=== PATIENT | male | born 2000 | race Caucasian/White ===

== ENCOUNTER 2022-01-22 11:01 | Emergency (ER) | payer OTHER, SELFPAY ==
[2022-01-22 11:07] VITALS: BP 121/70; PULSE 80; RESP 20; TEMP 36.1; O2SAT 99; BMI 21.6
[2022-01-22 11:33] LABS: Hematocrit 44.9 % (42.0-52.0); Hemoglobin 14.7 g/dl (14.0-18.0); Mean Corpuscular HGB Conc 32.7 g/dl (31.0-36.0); Mean Corpuscular Hemoglobin 24.1 pg (27.0-33.0); Mean Corpuscular Volume 73.6 fL (80.0-98.0); Mean Platelet Volume 9.4 fL (9.4-12.4); Platelet Count 281 X10*3/uL (160-400); Red Cell Distribution Width 13.5 % (11.0-16.0)
[2022-01-22 11:49] LABS: Anion Gap 21 (12-20); Blood Urea Nitrogen 11 mg/dL (9-16); Calcium 10.8 mg/dL (8.4-10.2); Carbon Dioxide 20 mmol/L (22-29); Chloride 105 mmol/L (96-108); Creatinine Clr Calc Pharmacy 88.7; Estimated Glomerular Filt Rate > 60; Glucose Random 121 mg/dL (60-115); Lipase 48 U/L (8-78); Potassium 3.4 mmol/L (3.3-5.1); Sodium 143 mmol/L (135-145)
== END 2022-01-22 14:21 | disposition left against medical advice (07) ==
PROVIDERS: Emergency Provider Emergency Medicine
DX: R11.10 Vomiting, unspecified (principal); R10.9 Unspecified abdominal pain
CPT/HCPCS: 36415; 80048; 83690; 85027; 99281; 99283

== ENCOUNTER 2023-06-14 19:59 | Emergency (ER) | payer OTHER, SELFPAY ==
--- NOTE | ~2023-06-14 | XR_ITS ---
EXAMINATION: XR FINGER, RIGHT CLINICAL INFORMATION: Digit deformity. COMPARISON: None available. TECHNIQUE: Three views of the right small finger. FINDINGS: Fixed flexion of the fifth distal interphalangeal joint. Equivocal nondisplaced fracture at the tuft of the fifth distal phalanx. No additional acute osseous findings. Mild soft tissue swelling centered around the fifth digit and hypothenar surface of the hand. No unexpected radiopaque foreign bodies. XR/XR finger RT min 2V IMPRESSION: 1. Fixed flexion of the fifth distal interphalangeal joint suspicious for ligamentous injury. 2. Equivocal nondisplaced fracture at the tuft of the fifth distal phalanx. Correlate for point tenderness.
[2023-06-14 20:01] VITALS: BP 133/85; PULSE 103; RESP 18; TEMP 37.4; O2SAT 96; BMI 21.5
--- NOTE | 2023-06-14 20:01 | ED.GENADULT ---
HPI - General Adult General Chief complaint: Extremity Injury, Upper Stated complaint: R pinky finger injury, playing basketball Time Seen by Provider: 06/15/23 00:03 Source: patient, RN notes reviewed and old records reviewed Mode of arrival: ambulatory Limitations: no limitations History of Present Illness HPI narrative: A 22-year-old male presents for evaluation of an injury to his left 5th finger. Patient was playing basketball and jammed the finger against the ball and another player at the same time He reports that his left 5th finger bent backwards. He complains of pain to the tip of the left 5th finger No other complaints or concerns at this time Related Data Allergies Allergy/AdvReac Type Severity Reaction Status Date / Time No Known Allergies Allergy Unverified 04/01/20 16:50 Review of Systems Constitutional: Constitutional: Denies chills and Denies fever(s) Musculoskeletal: Musculoskeletal: Reports arthralgias and Reports joint swelling Integumentary/Breasts: Skin/Breast: Denies wounds PMFSH Social History Social History Advance Directives: No Advance Directives Information Provided: No Physical Exam ED Vital Signs: Vital Signs - 24 hr 06/14/23 20:01 Temperature 99.3 F Pulse Rate 103 H Respiratory Rate 18 Blood Pressure 133/85 Pulse Oximetry 96 Oxygen Delivery Method Room Air BMI result Body Mass Index 21.5 Const General: healthy appearing, comfortable, no acute distress, alert and awake Nutritional Appearance: well nourished Orientation/consciousness: patient oriented x3 HENMT Head: Yes normocephalic and Yes atraumatic Eyes Eyelids: Yes eyelids normal Conjunctivae: conjunctivae normal Sclerae: sclerae normal Corneas: corneas normal Pupils: Equal, round and reactive pupils present EOM: EOMs intact bilaterally Neck Neck: Yes full ROM Resp Effort & Inspection: normal respiratory effort, able to speak in complete sentences and not labored Cardio Rate: regular rate Rhythm: regular rhythm GI Inspection: No distended Palpation (GI): Soft to palpation, not firm, nontender, no guarding and not rigid Skin General skin exam: no rashes or lesions noted and elasticity normal Neuro General: patient oriented x3 Cranial nerves: Yes Equal, round and reactive pupils present and Yes Bilaterally intact EOM present Cognition (Neuro): normal cognition Extrem Other: Patient has minimal edema to the distal left 5th finger. The area is tender to palpation. He has difficulty with extension of the left the DIP joint. She no open wounds Course Course Course Narrative: This is a rapid medical exam: Additional HPI, ROS, PE not included below will be deferred to primary provider. Patient is a 22-year-old male presenting to the ED with right 5th finger pain and deformity. States he was playing basketball and jammed hand into another player. + mallet deformity to R fifth finger, capillary refill <2 seconds. Neurovascularly intact. Patient rates pain at 5/10. Plan: x-ray Medical Decision Making Medical Decision Making MDM Narrative: X-ray shows a mild fracture of the tuft to the left 5th distal phalanx. He likely has ligamentous injury and has difficulty with extension. Patient was splinted with a kings-tape method. No open wounds. Discussed results with patient he would referred to Orthopedics for follow-up Differential Diagnosis Differential Diagnoses: The differential diagnosis associated with the presentation includes Finger fracture Dislocation Finger sprain Contusion Independent Interpretation I performed an independent interpretation of an: Plain X-Ray (No dislocation) Radiology Impression Discussion of test interpretation with radiology: I have reviewed the radiologist's reading. (Fixed flexion suggestive ligamentous injury. Equivocal nondisplaced tuft fracture of the left 5th finger) Discharge Plan Discharge Clinical Impression: Finger fracture, left Patient Disposition: Home, Self-Care Instructions: Finger Fracture (ED) Additional Instructions: Your x-ray showed a fracture to the tip of the left 5th finger/pinky finger You may keep it kings tape to help stabilize the finger and allow for healing You also likely have a ligamentous injury to the left finger based on the x-ray Follow-up with Dr. Noemi Meredith, hand surgery Use ibuprofen/Tylenol for pain Referrals: Noemi Meredith MD [Physician] - (Left fifth finger fracture. Likely ligament tear) Interventions: ED Discharge Assessment Last Done: 06/15/23 00:50 Discharge Date/Time: 06/15/23 00:50
--- NOTE | 2023-06-15 00:21 | PC.NURSE ---
Patient's family member approached this RN requesting to see a doctor/provider. Awaiting ED provider to speak with and evaluate patient. Patient & visitor remain in [facility] room 2. Pending ED provider evaluation. weighing station operator (Tricia Rose) aware.
== END 2023-06-15 00:50 | disposition home or self-care (01) ==
PROVIDERS: Emergency Provider Emergency Medicine
DX: S62.607A Fracture of unspecified phalanx of left little finger, initial encounter for closed fracture (principal); Y93.67 Activity, basketball; Y92.310 Basketball court as the place of occurrence of the external cause; Y99.9 Unspecified external cause status
CPT/HCPCS: 73140; 99282; 99283

== ENCOUNTER 2023-06-20 11:13 | Outpatient (REF) | payer OTHER, SELFPAY ==
--- NOTE | ~2023-06-20 | XR_ITS ---
EXAMINATION: XR HAND, LEFT CLINICAL INFORMATION: Pain in left hand, splint off. COMPARISON: None available. TECHNIQUE: PA, lateral, and oblique views of the left hand. FINDINGS: Moderate degenerative changes in the first carpometacarpal joint with joint space narrowing and hypertrophic change. Sclerotic lesion overlying the capitate may represent a bone island. Flexion deformity at the DIP joint of the fifth digit. XR/XR hand LT min 3V IMPRESSION: Moderate degenerative changes in the first carpometacarpal joint with joint space narrowing and hypertrophic change. Sclerotic lesion overlying the capitate may represent a bone island. Flexion deformity at the DIP joint of the fifth digit. No displaced fracture. Recommend follow-up imaging in 10-14 days if fracture is suspected.
== END 2023-06-20 11:14 | disposition home or self-care (01) ==
LOC: HO.HOSX 11:13
PROVIDERS: Visit Provider Physician Assistant
DX: M79.642 Pain in left hand (principal); M20.022 Boutonniere deformity of left finger(s)
CPT/HCPCS: 73130; 99202

== ENCOUNTER 2023-06-20 14:28 | Outpatient (AMB) | payer OTHER, SELFPAY ==
--- NOTE | 2023-06-20 14:43 | MHC.OFFVIS ---
Intake Vital Signs 06/20/23 14:45 Height 5 ft 4 in Weight 125 lb BMI 21.5 Intake Visit Reasons: fc- LT 5th Finger fracture Intake Note: Juan Alberto 22 year old right dominant male presents today for an evaluation of left 5th digit, DOI 06/14/23. Patient reports that he jammed his finger against the ball and another player causing his finger to bend backwards. He presented to [facility] ED same day where xrays were taken and kings tape applied. Currently he states discomfort at his DIP, he felt comfort with kings tape. Allergies No Known Allergies Allergy (Unverified 06/20/23 14:47) HPI fc- LT 5th Finger fracture HPI Details 22-year-old right hand dominant male who presents to the office today for left 5th finger injury s/p jamming his finger against the ball and another player causing his finger to bend backwards, 06/14/23. He was seen at ED the same day where x-rays were performed and kings tape was applied. He currently states he has discomfort at his DIP joint of his finger. He finds relief with kings taping of the finger. [facility] Social History (Updated 06/20/23 @ 14:45 by SALVADOR Salazar) Patient Tobacco Use Status: Never used Tobacco Current occupational status: unemployed Current occupation: right hand dominant Review of Systems Const All systems reviewed & are unremarkable except as noted in HPI and below Physical Exam Vital Signs: BMI result Body Mass Index 21.5 Extrem Other: Right hand: Boutonniere deformity ( hyperextension of the PIP and flexion of the DIP) He is NVI. Results Reviewed Results Reviewed: Xrays were obtained in the office today and personally reviewed by me of the left small finger show boutonniere deformity Assessment & Plan Assessment & Plan (1) Boutonniere deformity of finger of right hand: Code(s): M20.021 - Boutonniere deformity of right finger(s) Plan I did explain the extent of his injury. At this point I would like for him to see occupational therapy to obtain a double ring splint to help with the immobilization of the digit. He will wear this for the next 6 weeks and avoid any type of impact or contact activities. I would like to see him back in 6 weeks for reevaluation, sooner if needed. Orders: Orders XR hand LT min 3V 06/20/23 M79.642 - Pain in left hand Patient Instructions: Scribed for Paco Heard PA-C, by Sravan Quintaan, medical records tech, on 06/20/2023 at 2:45 PM EST. IPaco PA-C, have personally reviewed and agree with the information entered by the scribe. Coding Level of Care Code New Pt Level 3 (96507) Diagnoses Boutonniere deformity of finger of right hand M20.021
[2023-06-20 14:45] VITALS: BMI 21.5
== END 2023-06-20 15:27 | disposition home or self-care (01) ==
PROVIDERS: Visit Provider Physician Assistant
DX: M20.021 Boutonniere deformity of right finger(s) (principal)
CPT/HCPCS: 99203

== ENCOUNTER 2023-08-01 13:40 | Outpatient (AMB) | payer OTHER, SELFPAY ==
[2023-08-01 13:47] VITALS: BMI 21.5
--- NOTE | 2023-08-01 13:47 | A.OFFVIS_ITS ---
Intake Vital Signs 08/01/23 13:47 Height 5 ft 4 in Weight 125 lb BMI 21.5 Intake Visit Reasons: OV- LT 5th Finger fracture Intake Note: Juan Alberto 23 year old male presents today for a follow up of left hand 5th digit fracture, DOI 06/14/23. Patient reports he is doing well, states his discomfort has subsided. He has no concerns today. Allergies No Known Allergies Allergy (Unverified 08/01/23 13:49) HPI OV- LT 5th Finger fracture HPI Details 23-year-old male who returns to the [facility] today for a follow-up of right 5th finger fracture, 06/14/23. He states his discomfort is not subsided and he is doing well overall. He is wearing his sling at all times. He has no other concerns today. [facility] Social History Patient Tobacco Use Status: Never used Tobacco Current occupational status: unemployed Current occupation: right hand dominant Review of Systems Const All systems reviewed & are unremarkable except as noted in HPI and below Physical Exam Vital Signs: BMI result Body Mass Index 21.5 Extrem Other: Right small finger: Normal to inspection. He can flex 90 degrees at MCP and PIP. He can hold the DIP in full extension and flex to 45 degrees. Assessment & Plan Assessment & Plan (1) Boutonniere deformity of finger of right hand: Code(s): M20.021 - Boutonniere deformity of right finger(s) Plan I did put in an order for occupational therapy to work on ROM. He can discontinue the use of splint and work on motion. If symptoms persist or worsens, patient will contact the office, otherwise he will see us back in 2 weeks for a follow-up, sooner if needed. Orders: Orders OT Evaluation and Treatment Today M20.021 - Boutonniere deformity of right finger(s) Patient Instructions: Scribed for Paco Heard PA-C, by Sravan Quintana medical program specialist, on 08/01/2023 at 1:30 PM Paco JUARES PA-C, have personally reviewed and agree with the information entered by the scribe. Coding Level of Care Code Est Pt Level 3 (15145) Diagnoses Boutonniere deformity of finger of right hand M20.021
== END 2023-08-01 13:55 | disposition home or self-care (01) ==
PROVIDERS: Visit Provider Physician Assistant
DX: M20.021 Boutonniere deformity of right finger(s) (principal)
CPT/HCPCS: 99213

== ENCOUNTER → 2023-08-01 13:40 | Outpatient (BNVA) | payer OTHER, SELFPAY | PROVIDERS: Visit Provider Physician Assistant | DX: M20.021 Boutonniere deformity of right finger(s) (principal) | CPT/HCPCS: 99212 ==

== ENCOUNTER 2023-08-16 12:57 | Outpatient (AMB) | payer OTHER, SELFPAY ==
--- NOTE | 2023-08-16 13:02 | MHC.OFFVIS ---
Intake Vital Signs 08/16/23 13:05 Height 5 ft 4 in Weight 125 lb BMI 21.5 Intake Visit Reasons: ov-right small finger ROM check Intake Note: Juan Alberto 23 year old male presents today for a follow up of left hand 5th digit fracture, DOI 06/14/23. States he will be starting O.T this upcoming week. He has been working at home on his ROM with some improvement. There are times while sleeping he has pain due to finger getting caught in his sheets. Allergies No Known Allergies Allergy (Unverified 08/16/23 13:05) HPI ov-right small finger ROM check HPI Details 23-year-old male who returns to the office today for a follow-up of right small finger fracture, 06/14/23. He states he has improvement in his pain however he does c/o occasional pain in his finger while sleeping due to the finger getting caught in the sheets. He is working on home exercises with benefits. He is starting with occupational therapy this upcoming week. He has no other concerns today. [facility] Social History Patient Tobacco Use Status: Never used Tobacco Current occupational status: unemployed Current occupation: right hand dominant Review of Systems Const All systems reviewed & are unremarkable except as noted in HPI and below Physical Exam Vital Signs: BMI result Body Mass Index 21.5 Extrem Other: Right small finger: Normal to inspection. He can flex 90 degrees at MCP and PIP. He can hold the DIP in full extension and flex to 45 degrees. Assessment & Plan Assessment & Plan (1) Boutonniere deformity of finger of right hand: Code(s): M20.021 - Boutonniere deformity of right finger(s) Plan He will work with occupational therapy which begins tomorrow. 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 If symptoms persist or worsens, patient will contact the office, otherwise follow-up as needed. Patient Instructions: Scribed for Paco Heard PA-C, by Sravan Quintana pediatrician/medical doctor, on 08/16/2023 at 1:15 PM EST. I, Paco Heard PA-C, have personally reviewed and agree with the information entered by the scribe. Coding Level of Care Code Est Pt Level 3 (79423) Diagnoses Boutonniere deformity of finger of right hand M20.021
[2023-08-16 13:05] VITALS: BMI 21.5
== END 2023-08-16 13:43 | disposition home or self-care (01) ==
PROVIDERS: Visit Provider Physician Assistant
DX: M20.021 Boutonniere deformity of right finger(s) (principal)
CPT/HCPCS: 99213

== ENCOUNTER → 2023-08-16 12:57 | Outpatient (BNVA) | payer OTHER, SELFPAY | PROVIDERS: Visit Provider Physician Assistant | DX: M20.021 Boutonniere deformity of right finger(s) (principal) | CPT/HCPCS: 99212 ==

== ENCOUNTER 2023-08-31 13:30 | Outpatient (RCR) | payer OTHER, SELFPAY ==
--- NOTE | 2023-08-17 15:13 | MHC.OT.EP ---
[address] [phone] Occupational Therapy Plan of Care Patient Name: aDrren Gerard Date of Evaluation: 08/17/23 Diagnosis: R SF BOUTONNIERE DEFORMITY Pain Location: PAINFREE AT REST 5/10 AT DORSAL DIPj OF R SF THROBBING PAIN WITH SLEEPING, END RANGE FLEXION Pain Score: 0-5/10 Pain Scale Used: Numeric (0 - 10) Aggravating Factors: SLEEPING, GETTING FINGER CAUGHT Alleviating Factors: RESTING; NOT CURRENTLY TAKING PAIN MEDICATION Assessment: MR GERARD IS 7 WEEKS S/P TUFT FRACTURE WHILE PLAYING BASKETBALL. HE SPENT SIX WEEKS IMMOBILIZED. HE REPORTS HE IS PAINFREE AT REST AND MODERATE PAIN AT NIGHT WHILE SLEEPING. HE IS LIMITED IN HIS DIPj FLEXION AND EXTENSION, AND EDEMA IS PRESENT IN THE SMALL FINGER. A 15% LIMITATION IS REPORTED PER THE QUICK DASH ASSESSMENT. WILL CONT TO FOLLOW FOR A COURSE OF OT SERVICES TO ADDRESS THE AREAS MENTIONED BELOW. Frequency and Duration: The patient will be seen 2X/WEEK FOR 3 WEEKS Short Term Goals: SEE BELOW Retirement Goals: IND HEP IND EDEMA MANAGEMENT STRATEGIES IND ORTHOSIS USE ACHIEVE TIP TO DPC OF R SF R GROSS GRASP >75 POUNDS Treatment Plan: Therapeutic Exercise Therapeutic Activity Home Exercise Program Splinting Neuro Re-ed Patient Education Desensitization/Sensory Re-ed Edema Control ADL Training Ultrasound NMES Iontophoresis Paraffin Fluidotherapy MHP Cold Packs Joint Mobilization Soft Tissue Mobilization Kinesiotaping Other (see comments) Electronically Signed By: SHYANN CHANCE OTR/L Please Sign and return to therapist. Thank you once again for your referral.
--- NOTE | 2023-08-31 14:51 | MHC.OT.DC ---
[address] [phone] F: [phone] Occupational Therapy Discharge Note Patient Name: Darren Gerard Provider: Paco Heard Diagnosis: R SF BOUTONNIERE DEFORMITY Date of Evaluation: 08/17/23 Date of Discharge: 08/31/23 Treatments to Date: 4 Cancellations to Date: 0 No Shows to Date: 0 Discharge Status: Achieved Goals Improved Function Independent with HEP Discharge Summary: MR GERARD IS 9 WEEKS S/P INJURY TO R SF. HE HAS PROGRESSED WELL WITH HIS OT RX SESSIONS. HE CURRENTLY DENIES FUNCTIONAL LIMITATIONS WITH ADLs OR IADLs. HAS BEGUN TO SLOWLY PLAY BASKETBALL AGAIN. NO PAIN REPORTED AT REST OR WITH LIGHT RESISTANCE GRIPPING/ PULLING/ PINCHING. NO ADDITIONAL OT SERVICES INDICATED, Pt WILL BE TRANSITIONED TO A HOME BASED PROGRAM AT THIS TIME. D/C OT. Electronically Signed By: SHYANN CHANCE OTR/Jasmina Reviewed/agree with student documentation: N/A Therapist: Please Sign and return to therapist, thank you for your referral.
== END 2023-08-31 14:50 | disposition home or self-care (01) ==
LOC: HO.OT 13:30
PROVIDERS: Visit Provider Physician Assistant
DX: M20.021 Boutonniere deformity of right finger(s) (principal)
CPT/HCPCS: 97110; 97165; 97530